=== PATIENT | male | born 1975 | race Caucasian/White ===

== ENCOUNTER 2024-01-08 11:47 | Emergency (ER) | payer OTHER, SELFPAY ==
[2024-01-08 11:50] VITALS: BP 147/103; PULSE 117; RESP 20; TEMP 36.4; O2SAT 98
--- NOTE | 2024-01-08 12:13 | ED.URI ---
HPI - URI/Sore Throat General Chief Complaint: Unspecified Stated Complaint: Chills/Left Ear Pain/Cough Time Seen by Provider: 01/08/24 12:00 Source: patient, RN notes reviewed and old records reviewed Mode of arrival: ambulatory Limitations: no limitations History of Present Illness HPI Narrative: 48 year old male who presents to [facility] care with multiple complaints. reports that he has had 18 month history of worsening teeth/mouth pain mainly bad teeth and patient is a long time smoker. He reports that he has had ringing in his ears for the past 8 months intermittently. He has pain in his hands and feet off and on worse for the past 2 weeks. Has had long history of worsening cough Patient states that he has severe OCD. Patint reports that he does not have a primary doctor or dentist needs to get one, requests information.. MD elicited complaint: cough and other (chills, left ear pain) Pertinent past history: other (heavy tobacco use,) Onset (ago): week(s) (increased symptoms since 12/25/2023) Pain scale (0-10): 5 Able to tolerate fluids by mouth: Yes Treatments prior to arrival: none Related Data Allergies Allergy/AdvReac Type Severity Reaction Status Date / Time No Known Allergies Allergy Unverified 01/08/24 12:19 Review of Systems Review of Systems: CONSTITUTIONAL: Reports malaise, chills, sweats, no fever. EYES: Denies visual changes, redness, or discharge. ENT: Reports rhinorrhea, congestion, sinus pain, left otalgia and no sore throat, reports dental pain especially left upper molar region. CARDIOVASCULAR: Denies chest pain, palpitations, or edema. RESPIRATORY: Reports cough.? Denies acute dyspnea. GASTROINTESTINAL: Denies abdominal pain, nausea, vomiting, diarrhea SKIN: Denies rash or itching. MUSCULOSKELETAL: Denies myalgia.reports intermittent hand and feet pain NEUROLOGIC: Denies present headache pain headache. All systems reviewed & are unremarkable except as noted in HPI and below PMFSH Past Medical History Medical History Cluster headaches Dental caries Ear pain History of IBS OCD (obsessive compulsive disorder) Surgical History Surgical History (Updated 01/09/24 @ 19:16 by Mya Conway NP) H/O arthroscopy of shoulder H/O radiofrequency ablation (RFA) of nerve of lumbar spine History of tonsillectomy Family History Family History Mother Acute myocardial infarction Father Cerebrovascular accident Social History Social History Smoking status: Heavy tobacco smoker Second hand tobacco smoke exposure: No Alcohol intake: current Alcohol use details: rare Substance use type: does not use Living arrangements: with family Gender identity (if verbalized by the patient): Male Comments At time of signature, agree with nursing past medical, surgical, social and family history. There is no relevant family history pertinent to the presenting complaint Exam Narrative: GENERAL: Well-appearing, well-nourished, and in no acute distress. HEAD: Normocephalic EYES: PERRLA, conjunctivae clear ENT: Nares clear, turbinates edematous and erythematous, clear discharge. Mucous membranes moist. TM pearly rubi with dull light reflex bilaterally; no tragal tenderness. Oropharynx erythematous without lesions. Tonsils not present and throat without exudate, no drooling, no hoarseness, no trismus, uvula midline.WIDE spread dental caries with teeth stained with redness around teeth in left upper molar region with some tenderness to left facial region, no trismus or Ernie angina noted NECK: Supple. No lymphadenopathy CHEST: Coarse to auscultation, breath sounds equal. No wheezing, rhonchi, rales, or stridor. No respiratory distress, speaks in full sentences.SAO2 98% on room air HEART: Regular rate and rhythm. No mur
== END 2024-01-08 12:20 | disposition home or self-care (01) ==
PROVIDERS: Emergency Provider Registered Nurse
DX: K04.7 Periapical abscess without sinus (principal); F17.210 Nicotine dependence, cigarettes, uncomplicated
CPT/HCPCS: 99203; G0463

== ENCOUNTER → 2024-01-12 13:15 | Outpatient (CLI) | payer OTHER, SELFPAY ==
--- NOTE | ~2024-01-12 | XR_ITS ---
Clinical Indication: Cough, shortness of breath PA and lateral views of the chest: Comparison: 01/02/2011 Findings: The lungs are clear, without evidence of focal consolidation or pleural effusion. Cardiome diastinal silhouette is within normal limits. Bones and soft tissues are unremarkable. Impression: Normal chest. Reviewed, dictated and finalized at location . Impression: Normal chest.
== END ==
LOC: EXPBRAD 13:18
PROVIDERS: PCP Emergency Medicine; Visit Provider Emergency Medicine
DX: R06.2 Wheezing (principal); R06.02 Shortness of breath; R05.3 Chronic cough
CPT/HCPCS: 71046

== ENCOUNTER 2024-03-27 09:51 | Outpatient (CLI) | payer OTHER, SELFPAY ==
--- NOTE | ~2024-03-27 | CT_ITS ---
Non-contrast CT scan of the Abdomen and Pelvis Clinical indication: Abdominal pain Technique: 2.5 mm axial scans were obtained through the abdomen and pelvis without intravenous or or al contrast. Dose reduction technique was used on this scan by utilizing automated exposure control a nd iterative reconstruction technique. The dose-length product (DLP) was 1537.55 mGy-cm. Findings: Images through the lung bases reveal no abnormalities. There is no evidence of renal or ureteral calculi. The kidneys and the ureters are nondilated. The liver, spleen, pancreas, gallbladder, and adrenals appear normal. There is no aortic aneurysm. There is no evidence of bowel obstruction. Images through the pelvis were performed. There is no evidence of ascites or lymphadenopathy. Urinary bladder unremarkable. No pelvic mass seen. Impression: No significant abnormality seen. Reviewed, dictated and finalized at [facility]. Impression: No significant abnormality seen.
== END 2024-03-27 09:52 | disposition home or self-care (01) ==
LOC: ANHIMG 09:53
PROVIDERS: PCP Emergency Medicine; Visit Provider Surgery
DX: R10.31 Right lower quadrant pain (principal)
CPT/HCPCS: 74176